=== PATIENT | male | born 1965 | race Caucasian/White ===

== ENCOUNTER 2018-02-15 15:45 | Emergency (ER) | END 2018-02-15 17:46 | disposition home or self-care (01) ==

== ENCOUNTER 2018-02-22 16:41 | Emergency (ER) | END 2018-02-22 17:44 | disposition home or self-care (01) ==

== ENCOUNTER 2018-10-25 09:38 | Emergency (ER) | payer MEDICAID ==
[~2018-10-25] VITALS: Ht 177.8 cm; Wt 82.0 kg
[~2018-10-25 09:38] MED LIST: BEN25 PO; DIPH25TA68 PO; HYDR28CR25 TP; PRED50TA PO
[2018-10-25 09:45] VITALS: BP 123/78; PULSE 60; RESP 17; Ht 177.8 cm; Wt 82.0 kg
[2018-10-25] MEDS ORDERED: IBUPROFEN 800 MG TAB PO ONE (10:30)
[2018-10-25] MEDS ORDERED: IBUP800T48 PO (12:35)
--- NOTE | 2018-10-25 12:36 | ERD ---
ER Documentation Chief Complaint Chief Complaint lower back pain x 5 days HPI 53-year-old male presents with low back pain x5 days. Reports that the back pain began suddenly denies any heavy lifting or injuries. He denies any previous history of low back pain. States the back pain today is 8 out of 10 constant intensity and sharp in character. He states that the pain is worse when he is trying to get up from a seated or laying down position. Pain is better with rest. He has tried Tylenol with no relief of his pain. He states that he has no other past medical history. He denies any loss of bowel or bladder function, fevers, or saddle anesthesia. ROS All systems reviewed and are negative except as per history of present illness. Medications Home Meds Active Scripts Ibuprofen* (Motrin*) 800 Mg Tab, 800 MG PO Q6H PRN for PAIN AND OR ELEVATED TEMP, #30 TAB Prov:SYLVIA THAO PA-C 10/25/18 Hydrocortisone (CORTIZONE-10) 28 Gm Cream..g., 1 APPLIC TP BID for itching for 7 Days, #1 TUB Prov:KALEIGH AC DO 02/22/18 Diphenhydramine Hcl (Benadryl Allergy) 25 Mg Tablet, 25 MG PO Q6H PRN for ITCHING, #30 TAB Prov:KALEIGH CA DO 02/22/18 Diphenhydramine Hcl* (Benadryl*) 25 Mg Cap, 25 MG PO Q6H PRN for ITCHING for 3 Days, CAP Prov:LESTER ORLANDO 02/15/18 Prednisone* (Prednisone*) 50 Mg Tablet, 50 MG PO QHS for 6 Days, TAB Prov:LESTER ORLANDO 02/15/18 Allergies Allergies: Coded Allergies: No Known Allergy (Unverified , 02/15/18) PMhx/Soc Medical and Surgical Hx: pt denies Medical Hx, pt denies Surgical Hx Hx Alcohol Use: No Hx Substance Use: No Hx Tobacco Use: No Smoking Status: Never smoker FmHx Family History: No diabetes Physical Exam Vitals Vital Signs Date Temp Pulse Resp B/P (MAP) Pulse Ox O2 O2 Flow FiO2 Time Delivery Rate 10/25/18 97.9 60 17 123/78 98 09:45 (93) Physical Exam Const: No acute distress Head: Atraumatic Eyes: Normal Conjunctiva, PERRLA ENT: Normal External Ears, Nose and Mouth. Neck: Full range of motion Resp: Clear to auscultation bilaterally Cardio: Regular rate and rhythm, Abd: Soft, non tender, non distended. Skin: No rashes Back: Tenderness to the Left and Right SI joint on low back Ext: No cyanosis, or edema Neur: Awake and alert Psych: Normal Mood and Affect Results 24 hrs Current Medications Medications Dose Sig/Eb Start Time Status Last (Trade) Ordered Route PRN Stop Time Admin Dose Reason Admin Ibuprofen 800 mg ONCE ONCE 10/25/18 DC 10/25/18 (Motrin) PO 10:30 10:17 10/25/18 10:31 Procedures/MDM ED COURSE: The patient was stable throughout ED course. I kept the patient informed of laboratory and diagnostic imaging results throughout the ED course. DIAGNOSTIC IMAGING: Read by radiologist. PROCEDURE: XR Lumbar Spine. CLINICAL INDICATION: Low back pain for 5 days. TECHNIQUE: Two views of the lumbar spine are available for review COMPARISON: None available FINDINGS: A shallow convex right curvature. There is normal lordosis. There is transitional anatomy with asymmetrical sacralization of L5 seen best on the AP view. 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 There is severe facet arthrosis seen best on the lateral view. There is 5 mm of retrolisthesis of L4 on L5. There is also severe facet arthrosis L4-5. No pars fractures are identified although oblique views may be of benefit. There is a shallow dextroscoliosis of the lumbar spine. There is 2 mm of degenerative retrolisthesis of L2 on L3 and L1-L2 with trace retrolisthesis of T12 on L1. Moderate spondylosis/degenerative enthesopathy changes are identified throughout the lumbar spine. Changes consist of disc space narrowing, and anterior osteophytes. IMPRESSION: 1. 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 2. 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 3. Severe facet arthrosis in the lower lumbar spine. 4. No acute fractures seen. 5. Degenerative listhesis throughout as described. RPTAT: XX .Macho Cook MD, Date Time Electronically viewed and signed by .Macho Cook MD, MD on 10/25/2018 12:27 PROCEDURES: None MEDICATIONS GIVEN: Motrin Patient tolerated medication well with no adverse reactions. Patient reported improvement in pain. MEDICAL DECISION MAKING: Patient is a 53-year-old male complaining of back pain x5 days. Physical exam patient was able to move his back and bend forward and backwards appropriately. Patient showed tenderness when palpating the left and right SI joint on the low back. X-ray imaging was done showing unremarkable acute changes and chronic arthritic changes. H&P and other data not c/w emergent process (eg. TERRIE, obstructed pyelo, AAA, CAUDA EQUINA SYNDROME, CORD COMPRESSION, INFILTRATIVE, INFECTIOUS ETIOLOGY, EPIDURAL ABSCESS, FRACTURE). Patient was discharged with Motrin and told to follow-up with primary care and Ortho for further care and management. Vital signs were reviewed. Patient is afebrile. Patient was not hy poxic. Patient was hemodynamically stable. PRESCRIPTION: Motrin DISCHARGE: At this time, patient is stable for discharge and outpatient management. I have instructed the patient to follow-up with his/her primary care physician in 1-2 days. I have discussed with the patient the possibility of needing to see a specialist for further workup and imaging studies if symptoms persist. I have instructed the patient to promptly return to the ER for any new or worsening symptoms including increased pain, fever, nausea, vomiting, weakness or LOC. The patient and/or family expressed understanding of and agreement with this plan. All questions were answered. Home care instructions were provided. Disclaimer: Inadvertent spelling and grammatical errors are likely due to EHR/dictation software use and do not reflect on the overall quality of patient care. Also, please note that the electronic time recorded on this note does not necessarily reflect the actual time of the patient encounter. Departure Diagnosis: Primary Impression: Back pain Back pain location: low back pain Chronicity: acute Back pain laterality: bilateral Sciatica presence: without sciatica Qualified Codes: M54.5 - Low back pain Condition: Stable Patient Instructions: Back Pain (Acute Or Chronic) Referrals: COMMUNITY CLINICS YOU HAVE RECEIVED A MEDICAL SCREENING EXAM AND THE RESULTS INDICATE THAT YOU DO NOT HAVE A CONDITION THAT REQUIRES URGENT TREATMENT IN THE EMERGENCY DEPARTMENT. FURTHER EVALUATION AND TREATMENT OF YOUR CONDITION CAN WAIT UNTIL YOU ARE SEEN IN YOUR DOCTORS OFFICE WITHIN THE NEXT 1-2 DAYS. IT IS YOUR RESPONSIBILITY TO MAKE AN APPOINTMENT FOR FOLOW-UP CARE. IF YOU HAVE A PRIMARY DOCTOR --you should call your primary doctor and schedule an appointment IF YOU DO NOT HAVE A PRIMARY DOCTOR YOU CAN CALL OUR PHYSICIAN REFERRAL HOTLINE AT IF YOU CAN NOT AFFORD TO SEE A PHYSICIAN YOU CAN CHOSE FROM THE FOLLOWING [facility] [address] [facility] [address] [facility] [address] [facility] [address] [facility] [address] [facility] [address] [facility]. [facility] YOU HAVE RECEIVED A MEDICAL SCREENING EXAM AND THE RESULTS INDICATE THAT YOU DO NOT HAVE A CONDITION THAT REQUIRES URGENT TREATMENT IN THE EMERGENCY DEPARTMENT. FURTHER EVALUATION AND TREATMENT OF YOUR CONDITION CAN WAIT UNTIL YOU ARE SEEN IN YOUR DOCTORS OFFICE WITHIN THE NEXT 1-2 DAYS. IT IS YOUR RESPONSIBILITY TO MAKE AN APPOINTMENT FOR FOLOW-UP CARE. IF YOU HAVE A PRIMARY DOCTOR --you should call your primary doctor and schedule and appointment IF YOU DO NOT HAVE A PRIMARY DOCTOR YOU CAN CALL OUR PHYSICIAN REFERRAL HOTLINE AT . IF YOU CAN NOT AFFORD TO SEE A PHYSICIAN YOU CAN CHOSE FROM THE FOLLOWING [facility] INSTITUTIONS: [facility] [address] [place] [address] [facility] [address] [place] [address] [facility] [address] [place] [address] Additional Instructions: Call 1 of the numbers in the packet to establish primary care with the [facility] Llame al doctor CHRISTINE y kristine jp MELVA PARA DENTRO DE 1-2 ORTIZ.Dgale a la secretaria que nosotros le instruimos hacer esta melva.Avise o llame si bennett condicin se empeora antes de la melva. Regresa aqui si peor o no mejor. SYLVIA THAO PA-C Oct 25, 2018 12:36
== END 2018-10-25 13:07 | disposition home or self-care (01) ==
LOC: FTE 09:38
DX: M54.5 Low back pain (principal)
CPT/HCPCS: 72100; Z7502; Z7610

== ENCOUNTER 2018-11-08 14:47 | Emergency (ER) | payer MEDICAID ==
[~2018-11-08] VITALS: Wt 68.0 kg
[~2018-11-08 14:47] MED LIST changes: +IBUP800T48 PO
--- NOTE | 2018-11-08 19:28 | ERD ---
ER Documentation Chief Complaint Chief Complaint INTERMITTENT BACK PAIN WITH DYSURIA FOR THE PAST 3 DAYS. NO FEVERS HPI 53-year-old male, previously healthy, presents to the emergency department, complaining of intermittent episodes of back pain for 3 days, the patient also reports increased urinary frequency but denies dysuria or hematuria. No medications taken at this time. The patient denies any recent trauma, no distal weakness, numbness or tingling. ROS All systems reviewed and are negative except as per history of present illness. Medications Home Meds Active Scripts Acetaminophen* (Tylenol*) 325 Mg Tablet, 2 TAB PO Q6 PRN for PAIN AND OR ELEVATED TEMP, #20 TAB Prov:GANGA MCPHERSON MD 11/08/18 Ibuprofen* (Motrin*) 400 Mg Tab, 400 MG PO Q8 for 5 Days, #15 TAB Prov:GANGA MCPHERSON MD 11/08/18 Ibuprofen* (Motrin*) 800 Mg Tab, 800 MG PO Q6H PRN for PAIN AND OR ELEVATED TEMP, #30 TAB Prov:SYLVIA THAO PA-C 10/25/18 Hydrocortisone (CORTIZONE-10) 28 Gm Cream..g., 1 APPLIC TP BID for itching for 7 Days, #1 TUB Prov:KALEIGH AC DO 02/22/18 Diphenhydramine Hcl (Benadryl Allergy) 25 Mg Tablet, 25 MG PO Q6H PRN for ITCHING, #30 TAB Prov:KALEIGH AC DO 02/22/18 Diphenhydramine Hcl* (Benadryl*) 25 Mg Cap, 25 MG PO Q6H PRN for ITCHING for 3 Days, CAP Prov:LESTER ORLANDO 02/15/18 Prednisone* (Prednisone*) 50 Mg Tablet, 50 MG PO QHS for 6 Days, TAB Prov:LESTER ORLANDO 02/15/18 Allergies Allergies: Coded Allergies: No Known Allergy (Unverified , 02/15/18) PMhx/Soc Medical and Surgical Hx: pt denies Medical Hx, pt denies Surgical Hx Hx Alcohol Use: No Hx Substance Use: No Hx Tobacco Use: No Smoking Status: Never smoker FmHx Family History: No diabetes, No coronary disease Physical Exam Vitals Vital Signs Date Temp Pulse Resp B/P (MAP) Pulse Ox O2 O2 Flow FiO2 Time Delivery Rate 11/08/18 98.3 69 18 107/68 98 14:58 (81) Physical Exam Patient is in no acute distress, vital signs stable. Alert and fully oriented. EYES: PERRLA, EOMI, Sclera and conjunctiva appear normal. EARS: Canals clear, tympanic membranes WNL THROAT: Normal oropharynx. NECK: Supple, No lymphadenopathy. Full ROM without pain or tenderness. HEART: RRR, no rubs, murmurs, clicks or gallops. LUNGS: Clear to auscultation. ABDOMEN: Soft, non-tender without masses or hepatosplenomegaly. EXTREMITIES: No edema bilaterally. BACK: Normal inspection, no bruises, no rashes, no deformity, decreased range of motion for lateral rotation and flexion. No vertebral tenderness, bilateral lower muscle spasm. NEURO: Cranial nerves grossly intact, no motor or sensory deficit Results 24 hrs Laboratory Tests Test 11/08/18 18:35 11/08/18 18:41 Urine Color YELLOW Urine Clarity SLIGHTLY CLOUDY Urine pH 7.0 Urine Specific [place] 1.016 Urine Ketones NEGATIVE mg/dL Urine Nitrite NEGATIVE mg/dL Urine Bilirubin NEGATIVE mg/dL Urine Urobilinogen NEGATIVE mg/dL Urine Leukocyte Esterase NEGATIVE Luz Elena/ul Urine Microscopic RBC 1 /HPF Urine Microscopic WBC 1 /HPF Urine Squamous Epithelial Cells FEW /HPF Urine Hemoglobin NEGATIVE mg/dL Urine Glucose NEGATIVE mg/dL Urine Total Protein NEGATIVE mg/dl Bedside Urine pH (LAB) 7.0 Bedside Urine Protein (LAB) Negative Bedside Urine Glucose (UA) Negative Bedside Urine Ketones (LAB) Negative Bedside Urine Blood Negative Bedside Urine Nitrite (LAB) Negative Bedside Urine Leukocyte Esterase (L Negative Procedures/MDM At the time of discharge, patient nontoxic, ambulating, vital signs stable, no gross neurologic deficit. differential diagnosis include but not limited to: lumbar sprain/strain, sciatica, herniated disk, UTI less likely pyelo, kidney stone. Neurovascular exam grossly intact. no clinical findings suggestive of acute infectious process, no acute deformity, no edema, no rashes. Physical examination and clinical presentation consistent most likely with low back pain. Results and clinical impression discussed with the patient who agrees with management. The patient is stable to be treated outpatient and will be discharged home with recommendations and close monitoring The patient was informed that the evaluation in the emergency department has been done to rule out an acute emergency, therefore, chronic conditions like malignancy or autoimmune diseases have not been evaluated; therefore, the patient was instructed to follow up with the primary care provider in the next 48h. If symptoms persist, worsen or new symptoms develop, then patient should return to the ED immediately. Instructions explained and given to patient with acknowledgment and demonstrated understanding. Disclaimer: Inadvertent spelling and grammatical errors are likely due to EHR/dictation software use and do not reflect on the overall quality of patient care. Also, please note that the electronic time recorded on this note does not necessarily reflect the actual time of the patient encounter. Departure Diagnosis: Primary Impression: Low back pain Condition: Stable Additional Instructions: Muchas john por [facility] para bennett servicio. Esperamos que en bennett visita a la ada de emergencia bennett problema medico haya sido solucionado y que se sienta mucho mejor. Para estar seguros que bennett mejoria sigue en proceso, le pedimos el favor de hacer jp damian de seguimiento medico con bennett doctor primario en los proximos 2-4 woodard. Lleve con usted estos documentos y las medicinas recetadas. Si dick sintomas empeoran, NO SE ESPERE, por favor regrese a ada de emergencia INMEDIATAMENTE. En hector que usted no tenga un mdico de atencin primaria: Llame al mdico o clnica comunitaria de referencia que aparece abajo loida las horas de consultorio para hacer jp damian para que le vean. CLINICAS: [facility] [phone] [facility] [phone] [address] [facility] [phone] [address] [facility] [phone] [address] [facility] [phone] [address] [facility] [phone] [address],GANGA MD Nov 08, 2018 19:27
[2018-11-08] MEDS ORDERED: ACET325T33 PO (19:54)
[2018-11-08] MEDS ORDERED: IBUP-1561 PO (19:54)
[2018-11-08 20:07] VITALS: BP 120/78; PULSE 55; RESP 18
== END 2018-11-08 20:08 | disposition home or self-care (01) ==
LOC: FTE 14:47
DX: M54.5 Low back pain (principal)
CPT/HCPCS: 81001; Z7502; 81003; 99283